=== PATIENT | male | born 1940 | race Caucasian/White ===

== ENCOUNTER 2016-09-15 06:18 | Inpatient (IN) ==
[2016-09-15 07:19] LABS: INR 1.01; PROTIME 10.6 Seconds (9.2-11.7); PTT 28.5 Seconds (22.0-36.0)
--- NOTE | 2016-09-15 09:05 | Diag Imaging Result Doc PS360 ---
CHEST-2 VIEWS - 09/15/2016 INDICATION: POST BIOPSY TECHNIQUE: COMPARISON: 09/10/2015 FINDINGS: There is a moderate right pneumothorax, about 30%. This measures about 3.9 cm at the lung base maximally. IMPRESSION: Postprocedural right-sided pneumothorax. Electronically signed by Genaro Vela 09/15/2016 9:02 AM
--- NOTE | 2016-09-15 10:57 | Diag Imaging Result Doc PS360 ---
CHEST-2 VIEWS - 09/15/2016 at 1045 INDICATION: POST LUNG BX INSPIR EXPIR TECHNIQUE: COMPARISON: 0845 FINDINGS: The right-sided pneumothorax has increased in size. This now measures about 60%. This is worse at the right base. IMPRESSION: Worsening in the right pneumothorax. Electronically signed by Genaro Vela 09/15/2016 10:55 AM
[2016-09-15] MEDS ORDERED: XYLOCAINE 1%/EPI 1:100,000 ONE (11:19)
[2016-09-15] MEDS ORDERED: LR 1,000 ML ONE (11:27)
[2016-09-15] MEDS ORDERED: KEFZOL 1 GM/D5W 1 GM/50 ML IVPB ONE (11:35)
[2016-09-15] MEDS ORDERED: KETAMINE (DOSE) ONE (11:46)
[2016-09-15] MEDS ORDERED: ROBINUL ONE (11:53)
[2016-09-15] MEDS ORDERED: SODIUM CHLORIDE 0.9% 10 ML ONE (11:53)
[2016-09-15] MEDS ORDERED: VERSED ONE (11:57)
--- NOTE | 2016-09-15 12:01 | Diag Imaging Result Doc PS360 ---
CT GUIDED BIOPSY LUNG - 09/15/2016 INDICATION: R-UPPER LUNG NODULE TECHNIQUE: The risks and benefits of the procedure were discussed with the patient. The risk of pneumothorax was emphasized. All questions were answered. Written and verbal informed consent was obtained. Overlying skin was prepped and draped in sterile fashion. Anesthesia was achieved with injection of 10 cc of 1% lidocaine. COMPARISON: 08/18/2016 FINDINGS: The right upper lobe pulmonary nodule was biopsied approximately 7 times using a coaxial Temno needle set. There was no immediate pneumothorax during the procedure. However after the needles were withdrawn, there was a significant pneumothorax of about 30%. After two hours, this progressed to a larger pneumothorax of about 60%. 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 The complication was also explained to the patient. IMPRESSION: Successful right upper lobe pulmonary nodule biopsy. Complicated by a relatively large pneumothorax. The appropriate services were notified of complication. Electronically signed by Genaro Vela 09/15/2016 11:59 AM
--- NOTE | 2016-09-15 12:49 | Diag Imaging Result Doc PS360 ---
EXAM: CHEST-PORTABLE HISTORY: chest tube insertion TECHNIQUE: Portable upright AP COMPARISON: 09/15/2016 FINDINGS: Interval placement of a right-sided chest tube. There has been reexpansion of the right lung. No pneumothorax identified on the current exam. No other interval change. IMPRESSION: Interval placement of a right-sided chest tube with reexpansion of the right lung. Electronically signed by Fred Stewart 09/15/2016 12:47 PM
[2016-09-15] MEDS ORDERED: TYLENOL PO PRN (12:59)
--- NOTE | 2016-09-15 13:49 | CONSULTATION ---
DATE OF CONSULTATION: 09/15/2016 HISTORY: Mr. Alfred Torrez is a 76-year-old white male, patient of Dr. Emmanuel Brambila who has a 70- pack-year history of smoking. He has developed an enlarging mass in the right upper lobe of his lung. He is admitted today through outpatient surgery for a CT-guided needle biopsy of this lung mass per He has developed a postprocedure right pneumothorax and he is symptomatic, and we were asked to evaluate him. PAST MEDICAL HISTORY: A smoker, alcohol abuse, COPD, coronary artery disease with drug-eluting stent placement in 02/2016, atrial fibrillation. He has a left-sided pacemaker. He has had esophageal stricture dilatation in the past. MEDICATIONS: 1. Eliquis. 2. Plavix. 3. Aspirin. 4. Vitamin. 5. Digoxin. 6. He wears oxygen at night. 7. He has inhalers. 8. Atorvastatin 40 mg daily. 9. Lasix 40 mg daily. 10. Potassium chloride. 11. Losartan. 12. Omeprazole. 13. Sotalol. ALLERGIES: No known drug allergies. SOCIAL HISTORY: He does not smoke at this time. He plays golf and enjoys gardening and yard work. He is retired. . REVIEW OF SYSTEMS: A 14-point review of systems was performed and was essentially negative except for the history of present illness. He has had no significant weight loss. FAMILY HISTORY: His mother is living. He has a sister . He has 2 brothers living. PHYSICAL EXAMINATION: General: On exam, Mr. Torrez is an older white male who has some shortness of breath. He was awake, cooperative. No jaundice. No oral lesions. No cervical or supraclavicular lymphadenopathy. Heart: Irregular rate. He has decreased breath sounds, right lung, with some work of breathing. Abdomen: Soft without tenderness or palpable mass. No costovertebral tenderness. Rectal Exam: Not performed. He does have palpable femoral pulses. He had no significant peripheral edema. Neurological: No focal deficits. DIAGNOSTIC DATA: A chest x-ray documents a 30% right pneumothorax which is symptomatic. PLAN: Right chest tube. I discussed the procedure in detail with the patient and a friend at his bedside. He understands the need for this chest tube and its risks, and he wants to proceed. cc: MD Saw Cash MD Stephen W. Harbin, MD
--- NOTE | 2016-09-15 14:52 | OPERATIVE NOTE ---
PROCEDURE DATE: 09/15/2016 PREOPERATIVE DIAGNOSIS: Right pneumothorax. POSTOPERATIVE DIAGNOSIS: Right tension pneumothorax. PRINCIPAL PROCEDURE: Right #28-[place] chest tube. ANESTHESIA: Local with IV sedation. ESTIMATED BLOOD LOSS: 10 mL. DRAINS: A 28-[place]is[place] chest tube. INDICATIONS: Mr. Alfred Torrez is a 76-year-old white male, a patient of Dr. Emmanuel Brambila. He has a 70 pack-year history of smoking and has developed an enlarging right upper lobe lung mass. He underwent a CT-guided biopsy of this mass today in Radiology and he developed a postprocedure pneumothorax, which was symptomatic. FINDINGS: He had a right tension pneumothorax. DESCRIPTION OF PROCEDURE: The patient was brought to the operating room, was placed in the sitting position on the operating room bed. His arm was placed behind his head. He was given IV sedation and we used local anesthetic. In the anterior axillary line, about the level of his nipple, I made a curvilinear incision and then entered the right chest just above a rib using blunt Esparza scissors. The scissors were spread as they were removed from the chest, allowing us to place a #28-[place] chest tube into the right chest and direct it anteriorly and superiorly. It was secured to the skin at its exit site with 0 silk stitches. I dressed the exit site. The chest tube was hooked to the Thora-Klex and he had a persistent air leak. He tolerated the procedure well. Plans are for him to go to the recovery room and then be admitted to the floor. cc: MD Saw Cash MD
[2016-09-15] MEDS ORDERED: KETAMINE ONE (15:11)
[2016-09-15] MEDS: NORCO-7.5 PO PRN ×2 (15:32→19:07)
[2016-09-15] MEDS ORDERED: PRILOSEC PO PRN (18:49)
[2016-09-15] MEDS: DUONEB (A & A) INH SCH (21:34)
[2016-09-15] MEDS: NORCO-10 PO PRN (22:17)
[2016-09-15] MEDS: LIPITOR PO SCH (22:19)
[2016-09-15] MEDS: BETAPACE PO SCH (22:20)
[2016-09-15] MEDS: LANOXIN PO SCH (22:20)
[2016-09-16] MEDS: NORCO-10 PO PRN ×4 (02:15→23:14)
[2016-09-16] MEDS: DUONEB (A & A) INH SCH ×5 (03:30→21:13)
--- NOTE | 2016-09-16 04:15 | CONSULTATION ---
DATE OF CONSULTATION: 09/15/2016 ADMITTING DIAGNOSIS: Pneumothorax following CT-guided biopsy. HISTORY OF PRESENT ILLNESS: Mr. Torrez is a 76-year-old, white male with COPD, coronary artery disease, status post drug-eluting stent placement in February, who has developed a progressively increasing right upper lobe nodule. PET scan of this nodule revealed the nodule to be metabolically active with an SUV of 13. The patient stopped his anticoagulation after the case was discussed with Dr. Taylor. He was scheduled for a CT-guided biopsy which was performed earlier this morning. Chest x-ray following the biopsy revealed a 30% pneumothorax. Subsequent followup chest x-ray revealed increasing pneumothorax to 60%. A chest tube was placed by Dr. Londono. CURRENT MEDICATIONS: 1. Anoro Ellipta 1 inhalation each day. 2. Centrum Silver 1 tablet each day. 3. Digitek 125 mcg 1 tablet each day. 4. Eliquis 5 mg daily (on hold). 5. Nocturnal oxygen therapy. 6. Plavix (on hold). 7. Atorvastatin 40 mg daily. 8. Lasix 40 mg daily. 9. Losartan 50 mg 1 tablet daily. 10. Omeprazole 20 mg each day. 11. Potassium chloride 10 mEq extended tablet 1 tablet with each day. 12. Sotalol 80 mg p.o. twice a day. PAST MEDICAL HISTORY/PROBLEM LIST: 1. Atrial fibrillation. 2. Status post pacemaker placement. 3. Sinusitis. 4. History of esophageal stricture with dilatation. 5. Coronary artery disease with stent placement. 6. COPD. SOCIAL HISTORY: Prior tobacco use. The patient continues to drink 2-3 drinks per day. He has a 70 pack year history for tobacco. FAMILY HISTORY: Positive for unspecified cancers in his father. His mother is living. PHYSICAL EXAMINATION: General: Reveals a well-developed, well-nourished male who reports some chest wall pain associated with chest tube placement but is otherwise in no distress. Vital Signs: Blood pressure 132/47, heart rate 60, respiration rate 18, oxygen saturation 100%. HEENT: Pupils are equal and reactive. Oropharynx is clear. Neck: Supple. Chest: Reveals good air entry bilaterally. He has a chest tube in the right hemithorax. There is air bubbling through the chest tube with each cough. Cardiac Examination: Regular rate. Normal S1, normal S2. Abdomen: Soft and without hepatosplenomegaly. Extremities: Without edema. LABORATORY DATA: Chest x-ray following chest tube placement reveals reexpansion of the right lung. IMPRESSION: A 76-year-old with heart disease, lung disease, with an increasing right-sided pulmonary nodule. The patient has sustained an iatrogenic pneumothorax following a CT-guided biopsy. Pneumothorax has resolved following chest tube placement. He continues to have a small air leak. RECOMMENDATIONS: 1. Pain medicines as needed for pain control. 2. Continue chest tube management as per Dr. Londono. 3. Await CT-guided biopsy report. 4. Additional recommendations pending hospital course. cc: MD Valerio Samaniego
[2016-09-16] MEDS: ZOFRAN IV PRN ×2 (05:47→18:10)
--- NOTE | 2016-09-16 07:21 | Diag Imaging Result Doc PS360 ---
CHEST-PORTABLE - 09/16/2016 INDICATION: chest tube TECHNIQUE: COMPARISON: 09/15/2016 FINDINGS: There is a stable right chest tube in good position. There is no pneumothorax. IMPRESSION: No pneumothorax. Electronically signed by Genaro Vela 09/16/2016 7:18 AM
[2016-09-16] MEDS: BETAPACE PO SCH ×2 (08:42→20:04)
[2016-09-16] MEDS ORDERED: LASIX PO SCH (09:00)
[2016-09-16] MEDS ORDERED: CENTRUM SILVER PO SCH (09:00)
[2016-09-16] MEDS ORDERED: KLOR-CON PO SCH (09:00)
--- NOTE | 2016-09-16 11:41 | PROGRESS NOTE ---
DATE: 09/16/2016 SUBJECTIVE: Mr. Torrez underwent a CT-guided lung biopsy yesterday and got a postprocedure pneumothorax. I placed a 28-Swazi chest tube, which resolved his pneumothorax. This morning per Dr. Brambila he had a small air leak, but now I do not see any air leak even with coughing, so I will take suction off the chest tube, leave it to water seal. Will repeat a chest x-ray tomorrow, and if his lung remains inflated will remove his chest tube and look to get him home. cc: MD Saw Cash MD
[2016-09-16] MEDS: LIPITOR PO SCH (20:06)
[2016-09-16] MEDS: LANOXIN PO SCH (20:06)
[2016-09-17] MEDS: DUONEB (A & A) INH SCH ×2 (03:04→08:08)
--- NOTE | 2016-09-17 07:20 | Diag Imaging Result Doc PS360 ---
EXAM: CHEST-2 VIEWS HISTORY: R chest tube TECHNIQUE: Two views COMPARISON: 09/16/2016 FINDINGS: No right-sided pneumothorax. The right-sided chest tube appears in slightly different position than it did previously. There is basilar atelectasis. The heart is not enlarged. The vessels are not distended. Mass in the mid right lung is unchanged. There is a left-sided pacemaker. No pleural effusions. IMPRESSION: No right-sided pneumothorax. Electronically signed by Fred Stewart 09/17/2016 7:18 AM
[2016-09-17 07:28] LABS: BASO% 0.4 % (0.0-0.8); EOS# 1.89 X1000 (0.0-0.7); EOS% 25.2 % (0.0-10.0); HEMATOCRIT 39.1 % (42.0-52.0); MANUAL DIFF NEEDED? YES; MCH 28.3 PG (27-31); MCHC 33.2 g/dL (33-37); MONO# 0.69 X1000 (0.11-0.59); MONO% 9.2 % (1.7-9.3); MPV 10.9 FL (7.4-10.4); NEUT% 45.2 % (42.2-75.2); PLT 145 X1000 (130-400)
[2016-09-17 07:49] LABS: BANDS 4 % (0-1); EOS 30 % (1-10); LYMPHS 10 % (21-51); MONO 2 % (1-9)
[2016-09-17 07:59] LABS: AGAP 13; BUN 9 mg/dL (8-22); CALCIUM 8.7 mg/dL (8.8-10.2); CHLORIDE 93 mmol/L (98-107); COSMO 271; MAGNESIUM 1.8 mg/dL (1.5-2.7); POTASSIUM 4.4 mmol/L (3.5-5.1); SODIUM 136 mmol/L (136-145); TCO2 30 mmol/L (25-35)
[2016-09-17 08:40] VITALS: BP 127/74
--- NOTE | 2016-09-17 20:19 | DISCHARGE SUMMARY ---
ADMISSION DATE: 09/15/2016 DISCHARGE DATE: 09/17/2016 ADMITTING DIAGNOSIS: Right pneumothorax. POSTOPERATIVE DIAGNOSIS: Right pneumothorax. PRINCIPAL PROCEDURES: 1. CT-guided right lung biopsy. 2. Placement of right chest tube. DISCHARGE DIET: Regular. DISCHARGE DISABILITIES: Full. DISCHARGE DISPOSITION: He will return to Dr. Saw Brambila's office this coming Tuesday. DISCHARGE MEDICATIONS: He is to return to his home medications. HOSPITAL COURSE: Mr. Alfred Torrez is a 76-year-old, white male, patient Dr. Saw Brambila. He was scheduled for a CT-guided needle biopsy of a right lung mass which was performed by Dr. Genaro Vela on the day of admission, 09/15/2016. He developed a postprocedure right pneumothorax and we were asked to place a chest tube. We placed a #28-[place]izen [place] chest tube in the operating room using IV sedation and local anesthetic for a tension right pneumothorax. He was then hospitalized after placement of the right chest tube. On 09/16/2016, he had a small air leak in the morning but that had sealed by the afternoon. We placed water seal to his chest tube and this morning his lung remained expanded and there was no evidence of air leak. We decided to remove his right chest tube and discharge him to his home if he remains asymptomatic over the next 2 hours. He is to follow up with Dr. Saw Brambila this coming Tuesday and I have asked the patient to have Dr. Brambila remove the suture from his chest tube site. If there is any difficulty having that done, he is to contact my office for suture removal. Further care per Dr. Saw Brambila. He knows to return to the emergency department if he has increasing shortness of breath or chest pain. cc: MD Saw Cash MD
== END 2016-09-17 09:34 | disposition home or self-care (01) ==
LOC: DIRADM 06:18 → CT 06:18 → EDSTATUS 08:30 → 3N 12:57
PROVIDERS: ADMIT Internal Medicine Pulmonary Disease; ATTEND Internal Medicine Pulmonary Disease